=== PATIENT | female | born 1970 ===

== ENCOUNTER → 2025-06-20 13:23 | Outpatient (ROUT) | payer SELFPAY ==
[2025-06-20 15:17] LABS: Urine N gonorrhoeae NOT DETECTED
[2025-06-20 15:25] LABS: Urine Chlamydia NOT DETECTED
== END ==
PROVIDERS: Visit Provider Family Medicine
DX: Z20.2 Contact with and (suspected) exposure to infections with a predominantly sexual mode of transmission (principal)
CPT/HCPCS: 87389; 87491; 87591